=== PATIENT | male | born 1985 | race Caucasian/White ===

== ENCOUNTER 2022-05-01 08:00 | Outpatient (CLI) | payer OTHER ==
--- NOTE | 2022-05-01 16:47 | XRAY Report ---
PROCEDURE: Abdomen 1 View X-Ray INDICATIONS: ACUTE ABDOMINAL PX TECHNIQUE: One view of the abdomen acquired. COMPARISON: None FINDINGS: Surgical changes and devices: None. Bowel: Bowel gas pattern is normal. Soft tissues: No suspicious abdominal calcifications. Visualized solid organ contours appear normal in size. Bones: No suspicious bony lesions. Leftward curvature of the thoracolumbar spine. IMPRESSION: No acute plain film abnormality. Reviewed by: Chava Keyes on 05/01/2022 4:46 PM PDT Approved by: Chava Keyes on 05/01/2022 4:46 PM PDT Station ID: [id number]
[2022-05-01 18:14] LABS: BASOPHILS # (AUTO) 0.1 10^3/uL (0.0-0.1); BASOPHILS % (AUTO) 0.5 %; EOSINOPHILS # (AUTO) 0.1 10^3/uL (0.0-0.7); EOSINOPHILS % (AUTO) 0.4 %; HCT - HEMATOCRIT 47.1 % (42.0-52.0); LYMPHOCYTES # (AUTO) 1.3 10^3/uL (1.5-3.5); LYMPHOCYTES % (AUTO) 10.5 %; MEAN CORPUSCULAR VOLUME 91.3 fL (80.0-94.0); MEAN PLATELET VOLUME 10.9 fL (7.4-11.4); MONOCYTES % (AUTO) 7.6 %; NEUTROPHILS # (AUTO) 10.1 10^3/uL (1.5-6.6); NEUTROPHILS % (AUTO) 80.4 %; PLT - PLATELET COUNT 275 10^3/uL (130-450); RED BLOOD COUNT 5.16 10^6/uL (4.70-6.10); RED CELL DISTRIBUTION WIDTH 12.7 % (12.0-15.0); WHITE BLOOD COUNT 12.5 x10^3/uL (4.8-10.8)
[2022-05-01 18:45] LABS: ALBUMIN 4.4 g/dL (3.2-5.5); ALBUMIN/GLOBULIN RATIO 1.1 (1.0-2.2); BILIRUBIN,TOTAL 0.7 mg/dL (0.2-1.0); CREATININE 0.7 mg/dL (0.6-1.2); TOTAL PROTEIN 8.4 g/dL (6.7-8.2)
== END 2022-05-01 23:59 | disposition home or self-care (01) ==
LOC: DI.N 08:00
PROVIDERS: ATTEND Registered Nurse
DX: R10.9 Unspecified abdominal pain (principal)
CPT/HCPCS: 36415; 80053; 83690; 85025

== ENCOUNTER 2022-05-04 09:52 | Emergency (ER) | payer OTHER ==
--- NOTE | 2022-05-04 10:22 | ED Physician Documentation ---
PD HPI ABD PAIN - Stated complaint Stated Complaint: ABD PAIN - Chief complaint Chief Complaint: Abd Pain - History obtained from History obtained from: Patient - History of Present Illness Timing - onset: How many days ago (5) Timing - duration: Days (5) Timing - details: Gradual onset, Still present (peaked symptoms 2 days ago and is improving reasonably. Eating last evening and today. Minimal crmaping pains now lower abd.) Quality: Cramping, Aching, Pain Location: All over / everywhere (Initially upper abdomen but then became more diffuse over the ensuing couple of days. The last 2 days has been mild and predominantly lower abdomen.), Epigastric Radiation: No: Chest, Lower back Improved by: Meds (given Rx for cramping from Walk In but he only took a couple the first day. No need for meds past 2 days.). No: Eating Worsened by: Eating (somewhat increased cramping with eating.) Associated symptoms: Nausea, Vomiting (few times initial day.), Diarrhea (loose to watery for 1 1/2 days, now starting to firm.), Loss of appetite. No: Fever, Melena, Hematochezia, Dysuria Similar symptoms before: Has not had sx before, Other (The patient states he does drink most days mildly but this past weekend was with some friends and ate and drank a lot very heavily. Symptoms onset the following day.) Recently seen: Clinic (Walk In 3 days ago and had labs done, with elevated lipase. Patient called this morning and told to follow up. He went to walk in again but referred to ER from there.) Review of Systems Constitutional: denies: Fever, Chills, Myalgias Nose: denies: Rhinorrhea / runny nose, Congestion Throat: denies: Sore throat Respiratory: denies: Cough GI: reports: Abdominal Pain, Nausea, Vomiting, Diarrhea. denies: Abdominal Swelling, Hematemesis Neurologic: denies: Generalized weakness, Altered mental status, Headache PD PAST MEDICAL HISTORY - Past Medical History Cardiovascular: None Respiratory: None GI: None - Present Medications Home Medications: Ambulatory Orders Medication Instructions Recorded Confirmed No Known Home Medications 05/04/22 05/04/22 - Allergies Allergies/Adverse Reactions: Allergies Allergy/AdvReac Type Severity Reaction Status Date / Time No Known Drug Allergies Allergy Verified 05/04/22 10:03 PD ED PE NORMAL - Vitals Vital signs reviewed: Yes - General General: Alert and oriented X 3, No acute distress, Well developed/nourished - Neck Neck: Supple, no meningeal sign, No adenopathy - Cardiac Cardiac: RRR, No murmur - Respiratory Respiratory: Clear bilaterally - Abdomen Abdomen: Soft, Non distended, No organomegaly, Other (Mildly tender to palpation in the mid to lower abdomen. Not tender in the epigastric area. No percussion nor rebound tenderness. Bowel sounds are present and slightly hyperactive.) - Back Back: No CVA TTP - Derm Derm: Normal color, Warm and dry - Neuro Neuro: Alert and oriented X 3, No motor deficit, Normal speech Results - Vitals Vitals: Vital Signs - 24 hr 05/04/22 05/04/22 09:56 12:19 Temperature 36.2 C L Heart Rate 99 104 H Respiratory 16 17 Rate Blood Pressure 129/83 H 142/92 H O2 Saturation 100 100 Oxygen O2 Source Room air - Labs Labs: Laboratory Tests 05/04/22 05/04/22 10:38 10:38 WBC 16.0 H RBC 5.04 Hgb 15.7 Hct 45.5 MCV 90.3 MCH 31.2 H MCHC 34.5 RDW 11.9 L Plt Count 245 MPV 10.4 Neut # (Auto) 12.2 H Lymph # (Auto) 1.7 Wright # (Auto) 1.8 H Eos # (Auto) 0.1 Baso # (Auto) 0.1 Absolute Nucleated RBC 0.00 Nucleated RBC % 0.0 Manual Slide Review Indicated WBC Morphology Platelet Estimate NORMAL (130-450,000) Platelet Morphology NORMAL APPEARANCE RBC Morph Micro Appear NORMAL APPEARANCE Sodium 131 L Potassium 4.1 Chloride 95 L Carbon Dioxide 27 Anion Gap 9.0 BUN 10 Creatinine 0.9 Estimated GFR (MDRD) 95 Glucose 97 Calcium 9.4 Total Bilirubin 1.5 H AST 45 H ALT 63 H Alkaline Phosphatase 111 Total Protein 8.4 H Albumin 4.0 Globulin 4.4 H Albumin/Globulin Ratio 0.9 L Lipase 217 H - Rads (name of study) abd U/S Radiology: See rad report, Other (Preliminary report from survey technologist showed minimal gallbladder wall thickening of 3 mm. Common bile duct normal at 3.6 mm. No stones nor other structural abnormality. Organ size normal.) PD MEDICAL DECISION MAKING - ED course Complexity details: reviewed results (Lipase is decreasing. The patient is cli nically doing a lot better. Mild elevation of LFTs. Ultrasound without any structural abnormality (minimal gallbladder wall thickening at 3 mm). Consider possible viral gastroenteritis with hepatic and pancreatic involvement. May have been dietary/alcohol.), considered differential (He had drink heavily and ate a lot of rich foods over the weekend with a gathering with friends. Now with some abdominal cramping and pains, nausea, some vomiting and diarrhea and elevated lipase. Seen at walk-in 3 days ago and directed to follow-up today.), d/w patient Departure - Departure Disposition: Home, Self Care Clinical Impression: Abdominal cramping, Elevated lipase Pancreatitis, acute Qualifiers: Pancreatitis type: unspecified pancreatitis type Acute pancreatitis complication: no infection or necrosis Qualified Code(s): K85.90 - Acute pancreatitis without necrosis or infection, unspecified Condition: Stable Record reviewed to determine appropriate education?: Yes Instructions: ED Pancreatitis Comments: [place] food and frequent fluids for the next couple of days. I would hold off on the stool softener since you are having looser stools now. Ibuprofen 2-3 times daily if needed for mild pains. Your blood tests are showing an improvement in the lipase but now a slight elevation of your liver enzymes. These results could have been produced by irritation of the liver and pancreas from heavy you are drinking and eating the past weekend. However there could also have been element of a viral "stomach flu (gastroenteritis) and these can cause inflammation of the liver and pancreas as well. It could have been a combination of both. At this point given your pancreatic blood test showing improvement/downtrending and your symptoms being much improved, I would just continue to see how you do over the next few days. Your ultrasound did not show any obvious structural problems such as blockage, gallstones, tumors or unusual organ enlargement. Presume there for an inflammatory or infectious process such as noted above (alcohol or viral mediated). Recheck here or walk-in if not fully resolved by a few more days and return if worsening.
[2022-05-04 10:44] LABS: BASOPHILS # (AUTO) 0.1 10^3/uL (0.0-0.1); BASOPHILS % (AUTO) 0.5 %; EOSINOPHILS # (AUTO) 0.1 10^3/uL (0.0-0.7); EOSINOPHILS % (AUTO) 0.7 %; HCT - HEMATOCRIT 45.5 % (42.0-52.0); HGB - HEMOGLOBIN 15.7 g/dL (14.0-18.0); LYMPHOCYTES # (AUTO) 1.7 10^3/uL (1.5-3.5); LYMPHOCYTES % (AUTO) 10.9 %; MEAN CORPUSCULAR HEMOGLOBIN 31.2 pg (27.0-31.0); MEAN CORPUSCULAR HGB CONC 34.5 g/dL (32.0-36.0); MEAN CORPUSCULAR VOLUME 90.3 fL (80.0-94.0); MEAN PLATELET VOLUME 10.4 fL (7.4-11.4); MONOCYTES # (AUTO) 1.8 10^3/uL (0.0-1.0); MONOCYTES % (AUTO) 11.2 %; NEUTROPHILS # (AUTO) 12.2 10^3/uL (1.5-6.6); NEUTROPHILS % (AUTO) 76.2 %; PLT - PLATELET COUNT 245 10^3/uL (130-450); RED BLOOD COUNT 5.04 10^6/uL (4.70-6.10); RED CELL DISTRIBUTION WIDTH 11.9 % (12.0-15.0)
[2022-05-04 10:57] LABS: ALBUMIN/GLOBULIN RATIO 0.9 (1.0-2.2); BILIRUBIN,TOTAL 1.5 mg/dL (0.2-1.0); CALCIUM 9.4 mg/dL (8.5-10.3); CREATININE 0.9 mg/dL (0.6-1.2); POTASSIUM 4.1 mmol/L (3.5-5.0); TOTAL PROTEIN 8.4 g/dL (6.7-8.2)
[2022-05-04 11:01] LABS: SLIDE REVIEW? Indicated
[2022-05-04 11:23] LABS: PLATELET ESTIMATE, MANUAL NORMAL (130-450,000) (NORMAL); PLATELET MORPHOLOGY NORMAL APPEARANCE (NORMAL); RBC MORPHOLOGY (MULTIPLE) NORMAL APPEARANCE (NORMAL)
[2022-05-04 12:20] VITALS: BP 142/92
--- NOTE | 2022-05-04 12:52 | Ultrasound Report ---
PROCEDURE: Abdomen Limited INDICATIONS: ITS.REASON: upper abd pain; elevated lipase/LFTs. TECHNIQUE: Real-time focused scanning was performed of the abdomen, with image documentation. COMPARISON: Correlation is made with abdominal plain film, 05/01/2022. FINDINGS: The liver demonstrates mildly enlarged size. The liver demonstrates moderately increased echogenicity, which limits ultrasound sensitivity for detection of masses. The main portal vein demon strates normal size and hepatopedal flow. No gallstones or sludge can be seen. The gallbladder wall is minimally thickened at 3.1 mm. There is no specific pericholecystic fluid. The sonographic Loomis's sign is negative. No biliary ductal dilatation is seen. The common bile duct measures 3-4 mm. The visualized pancreas is within normal limits. The visualized right kidney is unremarkable. Scan quality is limited, secondary to patient body habitus and increased bowel gas. IMPRESSION: Minimal gallbladder wall thickening, without additional sonographic abnormality of the gallbladder. No biliary dilatation. Enlarged, fatty liver. Note: Concordant preliminary findings given by the accounting manager controller upon the completion of the examination to Dr. Ruby. Reviewed by: Chino Gudino MD on 05/04/2022 11:51 AM BETTYE Approved by: Chino Gudino MD on 05/04/2022 11:51 AM BETTYE Station ID: [id number]
== END 2022-05-04 12:21 | disposition home or self-care (01) ==
LOC: ED 09:52
DX: K85.90 Acute pancreatitis without necrosis or infection, unspecified (principal)
CPT/HCPCS: 36415; 80053; 83690; 85025; 99282; 99284

== ENCOUNTER 2022-06-12 06:02 | Emergency (ER) | payer OTHER ==
[2022-06-12] MEDS ORDERED: SODIUM CHLORIDE 0.9% 1,000 ML IV STA (06:21)
[2022-06-12 06:55] LABS: BASOPHILS # (AUTO) 0.1 10^3/uL (0.0-0.1); BASOPHILS % (AUTO) 0.3 %; EOSINOPHILS % (AUTO) 0.1 %; HCT - HEMATOCRIT 48.2 % (42.0-52.0); HGB - HEMOGLOBIN 17.2 g/dL (14.0-18.0); LYMPHOCYTES # (AUTO) 1.1 10^3/uL (1.5-3.5); LYMPHOCYTES % (AUTO) 5.9 %; MEAN CORPUSCULAR HEMOGLOBIN 31.2 pg (27.0-31.0); MEAN CORPUSCULAR HGB CONC 35.7 g/dL (32.0-36.0); MEAN CORPUSCULAR VOLUME 87.5 fL (80.0-94.0); MEAN PLATELET VOLUME 9.9 fL (7.4-11.4); MONOCYTES # (AUTO) 1.6 10^3/uL (0.0-1.0); MONOCYTES % (AUTO) 8.9 %; NEUTROPHILS % (AUTO) 84.4 %; PLT - PLATELET COUNT 258 10^3/uL (130-450); RED BLOOD COUNT 5.51 10^6/uL (4.70-6.10); RED CELL DISTRIBUTION WIDTH 12.9 % (12.0-15.0); WHITE BLOOD COUNT 17.8 x10^3/uL (4.8-10.8)
[2022-06-12 07:25] LABS: ALBUMIN 4.4 g/dL (3.2-5.5); ALBUMIN/GLOBULIN RATIO 1.1 (1.0-2.2); BILIRUBIN,TOTAL 1.5 mg/dL (0.2-1.0); CALCIUM 9.7 mg/dL (8.5-10.3); CREATININE 0.8 mg/dL (0.6-1.2); POTASSIUM 3.8 mmol/L (3.5-5.0); TOTAL PROTEIN 8.3 g/dL (6.7-8.2)
[2022-06-12] MEDS ORDERED: HYDROmorphone 1 MG/ML CARPUJECT IVP STA ×2 (07:29→10:03)
[2022-06-12] MEDS ORDERED: ONDANSETRON 4 MG/2 ML VIAL IVP STA (07:29)
[2022-06-12] MEDS ORDERED: iohexoL-300 100 ML VIAL ONE (07:59)
[2022-06-12] MEDS ORDERED: iohexoL-300 100 ML VIAL IVP ONE (08:33)
--- NOTE | 2022-06-12 09:37 | CT Report ---
PROCEDURE: ABDOMEN/PELVIS W INDICATIONS: diffuse, severe abd pain, pancreatitis CONTRAST: Omni 300 100 ml TECHNIQUE: After the administration of intravenous contrast, 5 mm thick sections acquired from the diaphragms to the symphysis. 5 mm thick coronal and sagittal reformats were acquired. For radiation dose reducti on, the following was used: automated exposure control, adjustment of mA and/or kV according to eagle ent size. COMPARISON: Abdominal ultrasound 05/04/2022. FINDINGS: Image quality: Excellent. ABDOMEN: Lung bases: Lung bases are clear. No pleural effusion. Heart size is normal. Solid organs: Liver and spleen are normal in size. Liver has a heterogeneous appearance and possible hepatic steatosis. Gallbladder is not distended. Biliary system is non dilated. Pancreas has a heterogeneous appearance with mild peripancreatic fluid. Mild to moderate fluid tracki ng inferiorly in the abdomen and pelvis. No loculated fluid collection. No pancreatic ductal dilatati on is seen. No pancreatic calcifications. No adrenal nodules. Kidneys demonstrate normal size and enhancement, without hydronephrosis. Peritoneum and bowel: Stomach is not significantly distended. Possible thickening at the duodenal C-l oop. There are mildly prominent fluid-filled loops of small bowel in the left abdomen. No transition point. No small bowel obstruction. The appendix is not dilated. Small volume of ascites as described above. No pneumoperitoneum. Nodes and vessels: No retroperitoneal or mesenteric adenopathy by size criteria. Aorta and inferior vena cava are normal in size. Miscellaneous: No ventral hernias. PELVIS: Genitourinary: Bladder wall thickness is normal. Miscellaneous: No inguinal hernias or adenopathy. Bones: No suspicious bony lesions. No vertebral body compression fractures. IMPRESSION: 1. Findings in keeping with interstitial edematous pancreatitis. No loculated fluid collection or tyler creatic necrosis at this time. 2. Mild ascites. Reviewed by: Jayden Leung MD on 06/12/2022 9:36 AM PST Approved by: Jayden Leung MD on 06/12/2022 9:36 AM PST Station ID: [id number]
--- NOTE | 2022-06-12 10:22 | ED Physician Documentation ---
PD HPI ABD PAIN - Stated complaint Stated Complaint: ABD PX/SOA/VOMITING - Chief complaint Chief Complaint: Abd Pain - History obtained from History obtained from: Patient - Additional information Additional information: The patient comes to the emergency department chief complaint of upper abdominal pain for approximately the last 2 days. He states that he drank heavily over the weekend and Friday morning, began to develop the pain. He states he also felt "hung over" when he woke up that morning. The patient denies any vomiting for most of the illness except once yesterday. He states that he has had pancreatitis once before after drinking heavily. He denies any gallbladder history. The patient states the pain is the main thing that is bothering him at this point in time. He denies any fevers or chills. No change in his bowel habits. Review of Systems Ten Systems: 10 systems reviewed and negative Constitutional: reports: Reviewed and negative Eyes: reports: Reviewed and negative Ears: reports: Reviewed and negative Nose: reports: Reviewed and negative Throat: reports: Reviewed and negative Cardiac: reports: Reviewed and negative Respiratory: reports: Reviewed and negative GI: reports: Abdominal Pain, Nausea (Intermittent, mild) : reports: Reviewed and negative Skin: reports: Reviewed and negative Musculoskeletal: reports: Reviewed and negative Neurologic: reports: Reviewed and negative Psychiatric: reports: Reviewed and negative Endocrine: reports: Reviewed and negative Immunocompromised: reports: Reviewed and negative PD PAST MEDICAL HISTORY - Past Medical History Past Medical History: Yes Cardiovascular: None Respiratory: None Neuro: None Endocrine/Autoimmune: None GI: Pancreatitis : None HEENT: None Psych: None Musculoskeletal: None Derm: None - Past Surgical History Past Surgical History: No - Present Medications Home Medications: Ambulatory Orders Medication Instructions Recorded Confirmed Ondansetron Odt [Zofran] 4 mg TL Q6H PRN #10 tablet 06/12/22 Oxycodone HCl/Acetaminophen 1 - 2 each PO Q6H PRN #14 tablet 06/12/22 [Percocet 5-325 mg Tablet] - Allergies Allergies/Adverse Reactions: Allergies Allergy/AdvReac Type Severity Reaction Status Date / Time No Known Drug Allergies Allergy Verified 06/12/22 06:13 - Social History Does the pt smoke?: No Smoking Status: Never smoker Does the pt drink ETOH?: Yes Does the pt have substance abuse?: No - Immunizations Immunizations are current?: No - POLST Patient has POLST: No PD ED PE NORMAL - Vitals Vital signs reviewed: Yes - General General: Alert and oriented X 3, Well developed/nourished, Other (The patient appears moderately uncomfortable but otherwise in no apparent distress) - HEENT HEENT: Atraumatic, PERRL, EOMI, Moist mucous membranes - Neck Neck: Supple, no meningeal sign - Cardiac Cardiac: RRR, No murmur, Strong equal pulses - Respiratory Respiratory: No respiratory distress, Clear bilaterally - Abdomen Abdomen: Soft, Non distended, Other (Moderate diffuse tenderness, no rebound or guarding.) - Derm Derm: Normal color, Warm and dry, No rash - Extremities Extremities: No deformity, No edema - Neuro Neuro: Alert and oriented X 3 - Psych Psych: Normal mood, Normal affect Results - Vitals Vitals: Oxygen O2 Source Room air - Labs Labs: Laboratory Tests 06/12/22 06/12/22 06:50 06:50 WBC 17.8 H RBC 5.51 Hgb 17.2 Hct 48.2 MCV 87.5 MCH 31.2 H MCHC 35.7 RDW 12.9 Plt Count 258 MPV 9.9 Neut # (Auto) 15.0 H Lymph # (Auto) 1.1 L [place] # (Auto) 1.6 H Eos # (Auto) 0.0 Baso # (Auto) 0.1 Absolute Nucleated RBC 0.00 Nucleated RBC % 0.0 Sodium 133 L Potassium 3.8 Chloride 97 L Carbon Dioxide 23 Anion Gap 13.0 BUN 9 Creatinine 0.8 Estimated GFR (MDRD) 109 Glucose 115 H Calcium 9.7 Total Bilirubin 1.5 H AST 28 ALT 34 Alkaline Phosphatase 81 Total Protein 8.3 H Albumin 4.4 Globulin 3.9 Albumin/Globulin Ratio 1.1 Lipase 2090 H - Rads (name of study) CT abd pelvis Radiology: Final report received, EMP read indepedently, See rad report (pancreatitis) PD MEDICAL DECISION MAKING - ED course Complexity details: reviewed results, re-evaluated patient, considered differential, d/w patient ED course: The patient was treated symptomatically in the emergency department with IV fluids, Zofran, and Dilaudid. He did report improvement in his symptoms with the Dilaudid. Laboratory studies showed a lipase of 2000. He was sent for CT scan of the abdomen and pelvis and found to have pancreatic inflammation with some ascites. The patient did complain of some recurrence of his pain was given another dose of Dilaudid. He had been through a similar bout previously with heavy drinking and I advised the patient that it is best that he avoids heavy alcohol intake and probably any alcohol intake from now on. The patient does not appear to have any gallbladder disease on CT today, and he had a negative ultrasound last month. At this point in time, he has tolerated at home treatment of his pancreatitis well previously and I feel that this is reasonable to start this time as well, since vomiting has not been a primary feature of his illness. He is advised to return for any jaundice, fever, or inability to hold fluids and pain meds down. Departure - Departure Disposition: Home, Self Care Clinical Impression: Acute alcoholic pancreatitis Qualifiers: Acute pancreatitis complication: no infection or necrosis Qualified Code(s): K85.20 - Alcohol induced acute pancreatitis without necrosis or infection Condition: Stable Instructions: ED Pancreatitis Prescriptions: Oxycodone HCl/Acetaminophen [Percocet 5-325 mg Tablet] 1 - 2 each PO Q6H PRN #14 tablet PRN Reason: pain Ondansetron Odt [Zofran] 4 mg TL Q6H PRN #10 tablet PRN Reason: Nausea / Vomiting Comments: Your labs show elevation of your pancreatic enzymes again. Your CT scan shows inflammation that is stemming from your pancreas, but no evidence of a pus pocket or other concerning findings. At this point in time, it is a matter of waiting and letting your pancreas calm down. The most important thing is to drink only water and do not attempt to eat any food. You may take the medication which has been prescribed to help with pain and any nausea that may come up. Your prescriptions have been electronically transmitted to the [facility] pharmacy in [place], which is your pharmacy of choice on record. Given that you have had pancreatitis twice in the last couple of months after episodes of heavy drinking, it is highly advisable that you avoid heavy alcohol intake, and probably, that you avoid any alcohol intake at all. There is no evidence of any other cause for your pancreatitis, the other most common ones being gallstones or trauma. There is no evidence of gallstones on your CT scan today, and you also had a negative gallbladder ultrasound in April as well. Please follow-up with your primary care physician for further concerns. If you are unable to hold your medication down, or if you become jaundiced or develop a fever in the next few days, or if your pain is unmanageable at home, then please return to the emergency department. Discharge Date/Time: 06/12/22 11:06
[2022-06-12 10:55] VITALS: BP 163/101
== END 2022-06-12 11:06 | disposition home or self-care (01) ==
LOC: ED 06:02
DX: K85.20 Alcohol induced acute pancreatitis without necrosis or infection (principal); R18.8 Other ascites
CPT/HCPCS: 36415; 74177; 80053; 83690; 85025; 96374; 96375; 96376; 99284; J1170; Q9967